=== PATIENT | female | born 1940 | race Caucasian/White ===

== ENCOUNTER 2017-12-06 09:14 | Emergency (ER) | payer OTHER ==
[~2017-12-06] VITALS: Ht 165.1 cm; Wt 64.9 kg
[~2017-12-06 09:14] MED LIST: ACCUPRIL5 MG PO; ASPIR 8181 MG PO; COQ-10100 MG PO; COREG25 MG PO; KEFLEX500 M1 PO; LASIX 40 MG TAB40 M2 PO; MAGNESIUM250 M1 PO; MINITRAN1 EAC1 TRANSDERM; SPIRIVA INH; SYNTHROID50 MCG PO; VENTOLIN HFA 1818 GM INH; VITAMIN D1000 UNI1 PO
[2017-12-06] MEDS ORDERED: LIPITOR80 MG PO (09:29)
[2017-12-06] MEDS ORDERED: DICLOFENAC SODI75 MG PO (09:30)
[2017-12-06 09:43] LABS: URINE BILIRUBIN NEGATIVE (Negative); URINE BLOOD NEGATIVE (Negative); URINE CLARITY CLEAR; URINE COLOR YELLOW; URINE GLUCOSE-RANDOM NEGATIVE (Negative); URINE KETONES NEGATIVE (Negative); URINE LEUKOCYTES-REFLEX 1+ (Negative); URINE NITRITE-REFLEX NEGATIVE (Negative); URINE PROTEIN NEGATIVE (Negative); URINE UROBILINOGEN 0.2 E.U./dl (0.2-1.0)
[2017-12-06 09:48] LABS: ABSOLUTE EOSINOPHILS 0.3 thou/uL (0.0-0.7); ABSOLUTE MONOCYTES 0.4 thou/uL (0.0-1.2); ABSOLUTE NEUTROPHILS 5.2 thou/uL (1.6-8.1); BASOPHILS 0.5 %; EOSINOPHILS 4.1 %; HEMATOCRIT 39.5 % (37.0-47.0); HEMOGLOBIN 13.2 gm/dL (12.0-15.0); LYMPHOCYTES 24.9 %; MCHC 33.3 g/dL (28.0-37.0); MONOCYTES 4.8 %; MPV 8.5 fl. (7.2-11.1); NUCLEATED RBCS 0 /100WBC; PLATELET COUNT* 158 thou/uL (150-400); POLYS 65.7 %; RBC 4.25 mil/uL (4.20-5.00); RDW-CV 13.1 % (10.5-14.5); WBC 7.9 thou/uL (4.0-11.0)
[2017-12-06 09:50] LABS: SQUAMOUS 4-10 Moderate /LPF (0-3); URINE RBC 0-2 Rare /HPF (0-2); URINE WBC-REFLEX 0-5 Rare /HPF (0-5)
[2017-12-06 09:51] LABS: BACTERIA-REFLEX 1-9 Few /HPF (None Seen); CASTS None Seen /LPF (None Seen); CRYSTALS None Seen /LPF (None Seen); MUCUS 0-3 Light strn/LPF (None Seen)
[2017-12-06 09:58] LABS: CALCIUM 8.7 mg/dL (8.5-10.1); CREATININE 1.3 mg/dL (0.6-1.3); POTASSIUM 3.9 mmol/L (3.5-5.1)
[2017-12-06 10:02] LABS: ALBUMIN 4.2 g/dL (3.4-5.0); TOTAL BILIRUBIN 0.5 mg/dL (<0.1-1.0); TOTAL PROTEIN 7.7 g/dL (6.4-8.2)
[2017-12-06] MEDS ORDERED: NORCO 5-325 TA1 EACH PO (11:15)
[2017-12-06] MEDS ORDERED: KEFLEX500 M1 PO (11:15)
[2017-12-06] MEDS ORDERED: ZOFRAN ODT4 MG PO (11:15)
[2017-12-06 11:38] VITALS: BP 148/68
== END 2017-12-06 11:40 | disposition home or self-care (01) ==
LOC: M.ERS 09:14
PROVIDERS: Personal Emergency Response Attendant
DX: N23 Unspecified renal colic (principal); N39.0 Urinary tract infection, site not specified; I11.0 Hypertensive heart disease with heart failure; I50.9 Heart failure, unspecified; J44.9 Chronic obstructive pulmonary disease, unspecified; F17.210 Nicotine dependence, cigarettes, uncomplicated; Z90.49 Acquired absence of other specified parts of digestive tract; Z88.8 Allergy status to other drugs, medicaments and biological substances; Z95.5 Presence of coronary angioplasty implant and graft; Z90.710 Acquired absence of both cervix and uterus

== ENCOUNTER 2017-12-13 08:20 | Emergency (ER) | payer OTHER ==
[~2017-12-13] VITALS: Ht 165.1 cm; Wt 60.8 kg
[~2017-12-13 08:20] MED LIST changes: +DICLOFENAC SODI75 MG PO; +LIPITOR80 MG PO; +NORCO 5-325 TA1 EACH PO; +ZOFRAN ODT4 MG PO
[2017-12-13 08:52] LABS: URINE BILIRUBIN NEGATIVE (Negative); URINE BLOOD NEGATIVE (Negative); URINE CLARITY CLOUDY; URINE COLOR YELLOW; URINE GLUCOSE-RANDOM NEGATIVE (Negative); URINE KETONES NEGATIVE (Negative); URINE LEUKOCYTES-REFLEX NEGATIVE (Negative); URINE NITRITE-REFLEX NEGATIVE (Negative); URINE PROTEIN NEGATIVE (Negative); URINE UROBILINOGEN 0.2 E.U./dl (0.2-1.0)
[2017-12-13 08:54] LABS: ABSOLUTE EOSINOPHILS 0.3 thou/uL (0.0-0.7); ABSOLUTE LYMPHOCYTES 1.9 thou/uL (0.8-5.3); ABSOLUTE MONOCYTES 0.5 thou/uL (0.0-1.2); ABSOLUTE NEUTROPHILS 4.8 thou/uL (1.6-8.1); BASOPHILS 0.5 %; EOSINOPHILS 3.7 %; HEMATOCRIT 39.8 % (37.0-47.0); HEMOGLOBIN 13.2 gm/dL (12.0-15.0); LYMPHOCYTES 25.6 %; MCH 31.1 pg (26.0-34.0); MCHC 33.3 g/dL (28.0-37.0); MCV 93.6 fL (80.0-100.0); MONOCYTES 6.7 %; MPV 8.1 fl. (7.2-11.1); NUCLEATED RBCS 0 /100WBC; PLATELET COUNT* 162 thou/uL (150-400); POLYS 63.5 %; RBC 4.25 mil/uL (4.20-5.00); RDW-CV 13.2 % (10.5-14.5); WBC 7.5 thou/uL (4.0-11.0)
[2017-12-13 09:00] LABS: CALCIUM 8.7 mg/dL (8.5-10.1); CREATININE 1.3 mg/dL (0.6-1.3); POTASSIUM 3.3 mmol/L (3.5-5.1)
[2017-12-13 09:05] LABS: HYALINE CASTS 0-3 Few /LPF (None Seen); MUCUS 0-3 Light strn/LPF (None Seen); SQUAMOUS 0-3 Few /LPF (0-3)
[2017-12-13 09:05] LABS: ALBUMIN 3.6 g/dL (3.4-5.0); TOTAL BILIRUBIN 0.4 mg/dL (<0.1-1.0); TOTAL PROTEIN 7.1 g/dL (6.4-8.2)
[2017-12-13 09:06] LABS: COARSE GRANULAR CASTS 0-3 Few /LPF (None Seen)
[2017-12-13 09:07] LABS: AMORPHOUS PHOSPHATES Many /LPF (None Seen); BACTERIA-REFLEX 1-9 Few /HPF (None Seen); URINE RBC 0-2 Rare /HPF (0-2); URINE WBC-REFLEX None Seen /HPF (0-5)
[2017-12-13] MEDS ORDERED: FLEXERIL PO (10:28)
[2017-12-13] MEDS ORDERED: PERCOCET 5-3251 EACH PO (10:28)
[2017-12-13 10:35] VITALS: BP 178/85
--- NOTE | 2017-12-15 09:36 | EKG ---
[place] [address] ELECTROCARDIOGRAM REPORT Name: ALESSANDRO MARTÍNEZ Room: [facility]#: [id number] Admission: 12/13/17 Attend Phys: Discharge: 12/13/17 Date of : 38 Report #: [id number] THIS REPORT FOR: //name// [facility] ED Test Date: 2017-12-13 Test Time: 08:50:15 Pat Name: ALESSANDRO GREWALFLORENTINOSABRINA Department: Room: Gender: F Railroad Mechanic: FELIX : 1940 Requested By: David Laird Order Number: [id number] MD: Giovanni Alas Measurements Intervals [place] Rate: 62 P: 28 MI: 201 QRS: 10 QRSD: 121 T: 3 QT: 436 QTc: 443 Interpretive Statements Sinus rhythm Left bundle branch block No previous ECG available for comparison Electronically Signed On 12-15-2017 9:36:10 CDT by Giovanni Alas [email or web address] <ELECTRONICALLY SIGNED> By: Giovanni Alas MD, [facility] 12/15/17 0936 0850 0850 Giovanni Alas MD, FACC /EPI
== END 2017-12-13 10:35 | disposition home or self-care (01) ==
LOC: M.ERS 08:20
PROVIDERS: Family Medicine
DX: M54.9 Dorsalgia, unspecified (principal); I11.0 Hypertensive heart disease with heart failure; I50.9 Heart failure, unspecified; J44.9 Chronic obstructive pulmonary disease, unspecified; F17.210 Nicotine dependence, cigarettes, uncomplicated; Z88.8 Allergy status to other drugs, medicaments and biological substances; Z95.5 Presence of coronary angioplasty implant and graft; Z90.49 Acquired absence of other specified parts of digestive tract; Z90.710 Acquired absence of both cervix and uterus

== ENCOUNTER 2018-10-15 19:52 | Emergency (ER) | payer OTHER ==
[~2018-10-15] VITALS: Ht 165.1 cm; Wt 63.5 kg
[~2018-10-15 19:52] MED LIST changes: +FLEXERIL PO; +PERCOCET 5-3251 EACH PO
[2018-10-15 21:10] LABS: ABSOLUTE BASOPHILS 0.1 thou/uL (0.0-0.2); ABSOLUTE EOSINOPHILS 0.4 thou/uL (0.0-0.7); ABSOLUTE LYMPHOCYTES 2.5 thou/uL (0.8-5.3); ABSOLUTE MONOCYTES 0.4 thou/uL (0.0-1.2); ABSOLUTE NEUTROPHILS 4.3 thou/uL (1.6-8.1); BASOPHILS 1.3 %; EOSINOPHILS 5.1 %; HEMATOCRIT 38.3 % (37.0-47.0); HEMOGLOBIN 12.9 gm/dL (12.0-15.0); MCH 30.1 pg (26.0-34.0); MCHC 33.6 g/dL (28.0-37.0); MCV 89.3 fL (80.0-100.0); MONOCYTES 5.4 %; MPV 7.7 fl. (7.2-11.1); NUCLEATED RBCS 0 /100WBC; PLATELET COUNT* 163 thou/uL (150-400); POLYS 56.2 %; RBC 4.29 mil/uL (4.20-5.00); RDW-CV 13.8 % (10.5-14.5); WBC 7.7 thou/uL (4.0-11.0)
[2018-10-15 21:20] LABS: ANION GAP 8 mmol/L (7-16); BUN 29 mg/dL (7-18); CALCIUM 8.6 mg/dL (8.5-10.1); CHLORIDE 105 mmol/L (98-107); CO2 30 mmol/L (21-32); CREATININE 1.1 mg/dL (0.6-1.3); GLUCOSE 114 mg/dL (70-99); POTASSIUM 4.2 mmol/L (3.5-5.1); SODIUM 143 mmol/L (136-145)
[2018-10-15 21:22] LABS: APTT 34.8 Seconds (25.0-31.3); INR 1.1; PROTIME 11.2 Seconds (9.20-11.50)
[2018-10-15 21:31] LABS: ALBUMIN 3.4 g/dL (3.4-5.0); ALKALINE PHOSPHATASE 101 U/L (46-116); LIPASE 305 U/L (73-393); MAGNESIUM 2.2 mg/dL (1.8-2.4); NT-PRO BRAIN NAT PEPTIDE 1502 pg/mL (<300); SGOT 20 U/L (15-37); SGPT 24 U/L (30-65); TOTAL BILIRUBIN 0.3 mg/dL (<0.1-1.0); TOTAL PROTEIN 7.1 g/dL (6.4-8.2); TROPONIN-I LEVEL <0.06 ng/mL (<0.06)
[2018-10-15] MEDS ORDERED: PREDNISONE 20 M20 M1 PO (22:03)
[2018-10-15 22:28] VITALS: BP 143/76
--- NOTE | 2018-10-18 14:31 | EKG ---
[place] [address] ELECTROCARDIOGRAM REPORT Name: ALESSANDRO MARTÍNEZ Room: [facility]#: [id number] Admission: 10/15/18 Attend Phys: Discharge: 10/15/18 Date of : 38 Report #: [id number] THIS REPORT FOR: //name// [facility] ED Test Date: 2018-10-15 Test Time: 21:24:25 Pat Name: ALESSANDRO MARTÍNEZ Department: Room: Gender: F [employer] Utility Worker: : 1940 Requested By: David Laird Order Number: [id number] MD: Escobar Sharp Measurements Intervals [place] Rate: 64 P: 24 GA: 205 QRS: 20 QRSD: 114 T: -7 QT: 431 QTc: 445 Interpretive Statements Sinus rhythm Incomplete left bundle branch block Borderline low voltage, extremity leads Compared to ECG 12/13/2017 08:50:15 No significant changes Electronically Signed On 10-18-2018 14:30:48 CDT by Escobar Sharp [email or web address] <ELECTRONICALLY SIGNED> By: Escobar Sharp MD, [facility] 10/18/18 1430 23 23 Escobar Sharp MD, [facility] /EPI
== END 2018-10-15 22:28 | disposition home or self-care (01) ==
LOC: M.ERS 19:52
PROVIDERS: Family Medicine
DX: J44.1 Chronic obstructive pulmonary disease with (acute) exacerbation (principal); J20.9 Acute bronchitis, unspecified; I11.0 Hypertensive heart disease with heart failure; I50.9 Heart failure, unspecified; Z88.8 Allergy status to other drugs, medicaments and biological substances; Z90.49 Acquired absence of other specified parts of digestive tract; Z90.710 Acquired absence of both cervix and uterus; Z95.5 Presence of coronary angioplasty implant and graft